=== PATIENT | male | born 2000 | race Two or more races ===

== ENCOUNTER 2025-06-16 19:49 | Emergency (ER) | payer OTHER, SELFPAY ==
[2025-06-16 19:58] VITALS: BP 174/122
[2025-06-16 20:14] VITALS: BMI 19.3
[2025-06-16 20:23] LABS: Hematocrit 43.0 % (39.0-52.0); Hemoglobin 14.4 g/dL (13.0-18.0); Mean Corp Hgb Conc. 33.5 g/dL (33.0-37.0); Mean Corpuscular Volume 89.4 fL (80.0-94.0); Nucleated Red Blood Cells % 0 % (-); Platelet Count 223 10^3/uL (130-400); Red Cell Dist. Width 12.4 % (11.5-14.5)
--- NOTE | 2025-06-16 20:25 | ED.GENMED ---
History of Present Illness
General
Chief Complaint: Heart Rate Problem
Time Seen by Provider: 06/16/25 20:19
History of Present Illness
History of Present Illness:
Patient is a 24-year-old male with a history of anxiety. He presents to the emergency department with racing heart, anxiety. States that symptoms began tonight after he smoked marijuana. He noted that he was having difficulty initiating urination
and felt burning in his bladder. States eventually he was able to urinate but felt like his heart was racing and began feeling panicked. He asked his grandmother to drive him to the emergency department.
Phy Exam
Physical Exam
Physical Exam:
GENERAL APPEARANCE: NAD, well developed/ well nourished
EYES lids/conjunctiva normal
EARS/NOSE/THROAT Mucous membranes moist, uvula midline without oral pharyngeal erythema, exudate or swelling
HEAD/NECK normocephalic atraumatic, neck is supple.
RESPIRATORY respiratory effort normal, speaks in full sentences, no accessory muscle use. Lungs clear to auscultation without rhonchi, wheezes, rales
CARDIAC Regular tachycardia
ABDOMINAL Soft, ND/NT. No pulsatile masses on exam, rebound tenderness, Vásquez sign or pain over Mcburney's point.
MUSCLES/EXTREMITIES No abnormal range of motion, no swelling.
SKIN Warm, pink and dry. No rashes
NEUROLOGICAL Speech is clear and appropriate. Normal level of consciousness. 5/5 strength in all extremities.
PSYCH mildly anxious appearing. Denies suicidality
Course
Orders/Labs/Results
Orders:
Orders
06/16/25 19:50
EKG [Electrocardiogram (*1)] Urgent
Reason for Study: Bradycardia / Tachycardia
EKG- Treatment ONCE
06/16/25 20:15
Complete Blood Count/With Diff Urgent
Comprehensive Metabolic Panel Urgent
06/16/25 20:25
0.9% Sodium Chloride 1000 ml [Nss] 1,000 ml IV BOLUS
Lorazepam [Ativan] 1 mg PO NOW STA
06/16/25 21:06
Urinalysis Urgent
Date Specimen was Collected: 06/16/25
Time Specimen was Collected: 21:05
Urine Microscopic Urgent
Date Specimen was Collected: 06/16/25
Time Specimen was Collected: 21:05
Abnormal Lab Results
06/16/25 06/16/25
20:15 21:06
Glucose 137 H mg/dl
(70-99)
Total Protein 8.5 H g/dl
(6.3-8.2)
Albumin 5.1 H g/dl
(3.5-5.0)
Urine Bacteria Few A
(Negative)
Urine Albumin 1+ A
(Neg - Trace)
06/16/25 20:15
06/16/25 20:15
Vital Signs
Initial and Last Documented VS:
Initial Vital Signs
Temp Pulse Resp BP Pulse Ox
99.8 F 145 20 174/122 96
06/16/25 19:58 06/16/25 19:58 06/16/25 19:58 06/16/25 19:58 06/16/25 19:58
Last Documented Vital Signs
Temp Pulse Resp BP Pulse Ox
99.8 F 98 16 131/78 95
06/16/25 19:58 06/16/25 21:45 06/16/25 21:45 06/16/25 21:04 06/16/25 21:45
*Pulse Oximetry
SaO2: 97
Oxygen Mode of Delivery: Room air
Patient hypoxic: no
*Critical Care Note
Total Time (30-74mins, 75-104mins- exclusive of procedures): Not Applicable
ED Attending Note
ED Attending Note
ED Attending Note:
Patient presents with tachycardia and anxiety in the setting of smoking marijuana. Patient was observed in the emergency department and given lorazepam which resolved his symptoms. He is not interested in speaking to the crisis counselor. Patient
is requesting discharge and his grandmother is going to drive him home at this time. His heart rate has improved.
-
Portions of this chart may have been created with voice recognition software.� Occasional wrong word or��sound alike� substitutions may have occurred due to the inherent limitations of voice recognition software.
Discharge Plan
Departure
Referrals:
UNKNOWN - PT DOES,NOT KNOW [Family Provider]
Interventions
Interventions:
*Risk Screen - Suicide Last Done: 06/16/25 20:24
*Neglect/Abuse Screening Last Done: 06/16/25 20:24
*ED- Fall Risk Assessment Last Done: 06/16/25 20:07
*ED COVID-19 Vaccine History Last Done: 06/16/25 20:07
*ED Influenza Vaccine History Last Done: 06/16/25 20:07
ED- Cardiac Assessment Last Done: 06/16/25 20:24
ED- Pulmonary Assessment Last Done: 06/16/25 20:24
Discharge Date and Time
Print Language: SERBIAN
[2025-06-16] MEDS: NSS 1000 IV (20:26)
[2025-06-16 20:53] LABS: ALT (SGPT) 25 U/L (0-50); AST (SGOT) 27 U/L (17-59); Albumin 5.1 g/dl (3.5-5.0); Alkaline Phosphatase 47 U/L (38-126); Blood Urea Nitrogen 15 mg/dl (9-20); Calcium 9.3 mg/dl (8.4-10.2); Carbon Dioxide 27 mmol/L (22-30); Chloride 103 mmol/L (98-107); Estimated Creatinine Clearance 110 ml/min; Glucose 137 mg/dl (70-99); Potassium 4.0 mmol/L (3.5-5.1); Sodium 139 mmol/L (135-145); Total Protein 8.5 g/dl (6.3-8.2); eGFR > 60.00
[2025-06-16] MEDS: ATIVAN 1 MG PO (20:54)
[2025-06-16 21:04] VITALS: BP 131/78
[2025-06-16 21:24] LABS: Urine Character Clear (Clear)
[2025-06-16 21:30] LABS: Urine Red Blood Cell 0-2 /HPF (0-2); Urine Squamous Cell 0-2 /LPF (Few); Urine White Cell 0-2 /HPF (0-5)
== END 2025-06-16 22:09 | disposition home or self-care (01) ==
LOC: EMR 19:49
PROVIDERS: EMERGENCY PHYSICIAN Emergency Medicine
DX: R00.0 Tachycardia, unspecified (principal); F41.9 Anxiety disorder, unspecified; F12.90 Cannabis use, unspecified, uncomplicated
CPT/HCPCS: 96360; 99284; 80053; 81003; 81015; 85025; 93005